=== PATIENT | male | born 1985 | race Caucasian/White ===

== ENCOUNTER 2017-03-21 20:18 | Emergency (ER) | payer OTHER ==
[~2017-03-21] VITALS: Ht 182.9 cm; Wt 83.0 kg
[~2017-03-21 20:18] MED LIST: ALBUTEROL17 GM INH; DELTASONE20 MG PO; EC-NAPROSYN500 MG PO; MORGIDOX100 MG PO; PHENERGAN W/CO120 ML PO; VIBRAMYCIN100 M1 PO; ZYRTEC10 M1 PO
== END 2017-03-21 20:44 | disposition home or self-care (01) ==
LOC: SED 20:18
DX: J45.909 Unspecified asthma, uncomplicated (principal); F17.210 Nicotine dependence, cigarettes, uncomplicated; Z88.0 Allergy status to penicillin
CPT/HCPCS: 99283